=== PATIENT | female | born 1950 | race Caucasian/White ===

== ENCOUNTER 2018-06-05 08:43 | Inpatient (IN) ==
[2018-05-30 10:19] LABS: Basophils # (Auto) 0.1 K/mcL (0.0-0.3); Eosinophils # (Auto) 0.5 K/mcL (0.0-0.7); Eosinophils % (Auto) 6.2 % (0.0-7.0); Granulocytes % (Auto) 56.3 % (38.0-78.0); Lymphocytes # (Auto) 2.4 K/mcL (1.5-4.8); Lymphocytes % (Auto) 29.5 % (15.5-49.0); Mean Cell Volume 93.7 fL (80.0-100.0); Mean Corpuscular HGB Conc 32.6 g/dL (31.0-36.0); Mean Corpuscular Hemoglobin 30.5 pg (26.0-34.0); Monocytes # (Auto) 0.6 K/mcL (0.1-0.9); Platelet Count 317 K/mcL (140-440); RBC 4.32 M/mcL (4.00-5.20); Red Cell Distribution Width 14.7 % (11.5-14.5)
[2018-05-30 10:55] LABS: Appearance,Urine HAZY; Bacteria,Urine 0 /hpf (0); Bilirubin,Urine NEG (NEG); Color,Urine YELLOW; Glucose,Urine (UA) NEGATIVE (NEG); Leukocyte Esterase,Urine 250 /uL (NEG); Protein,Urine NEG (NEG); Specific Gravity,Urine 1.014 (1.000-1.035); Urine Blood NEG mg/dL (<0.03); Urine RBC 1 /hpf (0-1); Urine Squamous Epithelial Cell 6 /hpf (0-4); Urine Transitional Epi Cells 1 /hpf (0-2); Urine WBC 14 /hpf (0-4)
[~2018-06-05 08:43] MED LIST: 0.9 % SODIUM CHLORIDE 9 ML, KETOROLAC 30 MG, ROPIVACAINE HCL/PF 49.5 ML, EPINEPHrine 0.... IJ SCH; ACETAMINOPHEN 500 MG TABLET PO SCH; CELECOXIB 200 MG CAPSULE PO SCH; PREGABALIN 75 MG CAPSULE PO SCH; ceFAZolin 1 GM VIAL IV SCH; oxyCODONE 10 MG TAB.ER.12H PO SCH
[2018-06-05 10:24] LABS: Blood Urea Nitrogen 10 mg/dl (8-23)
[2018-06-05] MEDS ORDERED: MIDAZOLAM 5 MG/5 ML VIAL IV ONE (13:20)
[2018-06-05] MEDS ORDERED: PROPOFOL 200 MG/20 ML VIAL IV ONE (13:20)
[2018-06-05] MEDS ORDERED: ONDANSETRON 4 MG/2 ML VIAL IV ONE (13:20)
[2018-06-05] MEDS ORDERED: TRANEXAMIC ACID 1,000 MG/10 ML VIAL IV ONE ×2 (13:20→14:43)
[2018-06-05] MEDS ORDERED: ROPIVACAINE HCL/PF 20 ML VIAL IJ ONE (13:20)
[2018-06-05] MEDS ORDERED: DEXAMETHASONE 10 MG/ML VIAL IV ONE (13:20)
[2018-06-05] MEDS ORDERED: HYDROmorphone 2 MG/ML VIAL IV ONE (13:20)
[2018-06-05] MEDS ORDERED: fentaNYL 250 MCG/5 ML VIAL IV ONE (13:20)
[2018-06-05] MEDS ORDERED: LIDOCAINE HCL/PF 100 MG/5 ML SYRINGE IV ONE (13:20)
[2018-06-05] MEDS ORDERED: MEPERIDINE 25 MG/ML SYRINGE IV PRN (14:16)
[2018-06-05] MEDS ORDERED: NALOXONE HCL 0.4 MG/ML VIAL IV PRN (14:16)
[2018-06-05] MEDS ORDERED: ePHEDrine 50 MG/ML AMPUL IV PRN (14:16)
[2018-06-05] MEDS ORDERED: ONDANSETRON 4 MG/2 ML VIAL IV PRN ×2 (14:16→14:43)
[2018-06-05] MEDS ORDERED: IPRATROPIUM/ALBUTEROL 3 ML AMPUL.NEB NEB PRN (14:16)
[2018-06-05] MEDS ORDERED: FLUMAZENIL 0.1 MG/ML ML IV PRN (14:16)
[2018-06-05] MEDS ORDERED: ATROPINE SULFATE 0.4 MG/ML VIAL IV PRN (14:16)
[2018-06-05] MEDS ORDERED: METHOCARBAMOL 1,000 MG/10 ML VIAL IV PRN (14:16)
[2018-06-05] MEDS ORDERED: PROMETHAZINE 25 MG/ML VIAL IM PRN (14:16)
[2018-06-05] MEDS ORDERED: diphenhydrAMINE 50 MG/ML VIAL IV PRN (14:16)
[2018-06-05] MEDS ORDERED: PROMETHAZINE 25 MG/ML VIAL IV PRN (14:16)
[2018-06-05] MEDS ORDERED: MEPERIDINE 50 MG/ML INJECTION IM PRN (14:16)
[2018-06-05] MEDS ORDERED: METOPROLOL TARTRATE 5 MG/5 ML VIAL IV PRN (14:16)
[2018-06-05] MEDS ORDERED: LACTATED RINGERS 1,000 ML IV SCH (14:30)
[2018-06-05] MEDS ORDERED: BISACODYL 10 MG SUPP.RECT PR PRN (14:43)
[2018-06-05] MEDS ORDERED: MAGNESIUM HYDROXIDE 30 ML ORAL.SUSP PO PRN (14:43)
[2018-06-05] MEDS ORDERED: BENZOCAINE/MENTHOL 1 LOZENGE PO PRN (14:43)
[2018-06-05] MEDS ORDERED: POLYETHYLENE GLYCOL 3350 17 GM PACKET PO PRN (14:43)
[2018-06-05] MEDS ORDERED: TEMAZEPAM 15 MG CAPSULE PO PRN (14:43)
[2018-06-05] MEDS ORDERED: FLEETS ADULT ENEMA PR PRN (14:43)
[2018-06-05] MEDS ORDERED: HYDROmorphone 2 MG/ML VIAL IV PRN (14:43)
[2018-06-05] MEDS ORDERED: ACETAMINOPHEN 325 MG TABLET PO PRN (14:43)
[2018-06-05] MEDS ORDERED: BUPRENORPHINE HCL 2 MG SL PRN (14:46)
[2018-06-05] MEDS ORDERED: ETODOLAC 400 MG TABLET PO PRN (14:46)
--- NOTE | 2018-06-05 14:48 | Brief Operative Note ---
Date of procedure: 06/05/18 Pre-op diagnosis: right knee djd severe Post-op diagnosis: same Procedure: right knee robotic tka Grafts/Implants: Yes Anesthesia: GETA Complications: none Surgeon: Benja Gomez Social Staff Worker: Thor Lee Estimated blood loss (cc): 20 Tourniquet Time (Minutes): 40 Specimens Removed/Pathology: none sent Condition: stable Disposition: PACU
[2018-06-05] MEDS: KETOROLAC 15 MG/ML VIAL IV SCH ×2 (15:18→23:53)
[2018-06-05] MEDS: fentaNYL 100 MCG/2 ML VIAL IV PRN ×4 (15:23→15:39)
--- NOTE | 2018-06-05 15:40 | Operative Note ---
DATE OF OPERATION: 06/05/2018 PREOPERATIVE DIAGNOSIS: Right knee degenerative arthritis in both the medial and patellofemoral joints. POSTOPERATIVE DIAGNOSIS: Right knee degenerative arthritis in both the medial and patellofemoral joints PROCEDURE: Right total knee arthroplasty. This is a robotic total knee arthroplasty with cemented components and resurfacing the patella with a 9 mm poly insert, cruciate retained design from [employer]. SURGEON: Benja Gomez M.D. POWDER CARRIER: Thor Lee PA-C. ANESTHESIA: General LMA anesthesia. COMPLICATIONS: None. INDICATIONS FOR SURGERY: Advanced right knee degenerative arthritis. She had failed all conservative measures, and for this we proceeded with the surgery. DESCRIPTION OF PROCEDURE: The patient was brought to the operating room and put to sleep with general LMA anesthesia. Once asleep, the patient had the right leg sterilely prepped and draped in the usual sterile fashion. We exsanguinated the leg, inflated the tourniquet to 250 pounds of pressure. We made a midline incision, midvastus approach performed. The timeout had been performed. Tranexamic acid and preop antibiotics had already been given. Inspecting the joint, we noticed the severe arthritis in the patellofemoral joint and the medial compartment. At this point, we proceeded with a total knee arthroplasty with the [employer] robot. We then placed two pins above and below the knee, registered the center of hip rotation, registered intraarticular pins and thirty points on the femur and tibia. Once these were registered, we balanced the knee for laxity and to balance the flexion-extension gaps with the robot. Rotation of the component was also marked for the tibial tray for rotation accuracy. Once all this had been done, we then irrigated, brought in the robot, placed retractors and cut the tibial cut first and then the femoral posterior, anterior, chamfer were all made. We then changed the saw blade and made our distal femoral cut and our chamfer cut. Once this was done, we irrigated thoroughly and tapped into place the tibial baseplate. Remnants of the meniscus had been removed and posterior osteophytes. The tibial base plate was positioned with rotation set. This was punched into place. We then placed the femoral component and drilled the peg holes. We then placed a 9 mm poly insert, and this seemed to fit very well. The patella tracked well, achieving full range of motion. Once done, we then prepared the patella. It measured 22 mm. We cut this to 13 mm and placed a 31 mm patellar button. A small chamfer cut was made laterally. We then cemented into place the above-mentioned sizes. Excess cement was removed. We kept the knee at 45 degrees until all cement was dry. Once done, we then reinspected for any loose debris, re-irrigated the knee and deflated the tourniquet at 40 minutes. Once all this was done, we closed the midvastus approach with #1 Stratafix x2, closed the deeper layer with Stratafix and adhesive closure. The patient tolerated this well. There were no complications. RBH:higinio Job ID: [id number] Doc ID: [id number] Benja Gomez MD
--- NOTE | 2018-06-05 15:42 | XRay Report ---
CLINICAL INFORMATION: ITS.REASON: Post-Op Total Knee COMPARISON: None. FINDINGS: Total knee prostheses is anatomically aligned. No osseous abnormality. Periarticular gas and soft tissue swelling seen as expected IMPRESSION: Negative Interpreted and Authenticated by: Reg Jiménez 06/05/18
[2018-06-05] MEDS: HYDROmorphone 2 MG/ML VIAL IV PRN ×2 (15:47→15:59)
[2018-06-05] MEDS: oxyCODONE/APAP 5/325MG TABLET PO PRN ×2 (16:20→20:54)
[2018-06-05] MEDS: 0.45 % SODIUM CHLORIDE 1,000 ML IV SCH (16:23)
[2018-06-05] MEDS: ASPIRIN 325 MG ENTERIC COATED TABLET PO SCH (20:54)
[2018-06-05] MEDS: DOCUSATE SODIUM 100 MG CAPSULE PO SCH (20:54)
[2018-06-05] MEDS: ceFAZolin 1 GM VIAL IV SCH (20:55)
[2018-06-05] MEDS ORDERED: SENNOSIDES 1 TABLET PO SCH (21:00)
[2018-06-05] MEDS: 0.9 % SODIUM CHLORIDE 10 ML SYRINGE IV SCH (21:00)
[2018-06-06] MEDS: 0.45 % SODIUM CHLORIDE 1,000 ML IV SCH (00:15)
[2018-06-06] MEDS: ceFAZolin 1 GM VIAL IV SCH (05:41)
[2018-06-06] MEDS: KETOROLAC 15 MG/ML VIAL IV SCH (05:42)
[2018-06-06] MEDS: 0.9 % SODIUM CHLORIDE 10 ML SYRINGE IV SCH (05:42)
[2018-06-06] MEDS: oxyCODONE/APAP 5/325MG TABLET PO PRN ×3 (05:42→12:41)
[2018-06-06] MEDS ORDERED: LEVOTHYROXINE 150 MCG TABLET PO SCH (07:30)
--- NOTE | 2018-06-06 07:47 | Orthopedic Progress Note ---
Subjective Patient information: Note initiated : 06/06/18 at 7:46 am Service Date, if different from initiated Date: [] Patient: Abbi Nice 67 y/o F admitted on 06/05/18 for Right Jorge L Total Knee Arthroplasty. Chief Complaint: [Pt is stable this morning on post operative day 1 without any significant concerns or complaints. Patients vital signs have remained stable. Patients dressing is dry and is grossly intact from a neurovascular and motor standpoint. Patients 10 point ROS is otherwise negative. ] Objective Vital signs: Vital Signs Temp Pulse Pulse Resp BP BP Pulse Ox 06/06/18 07:25 98.5 F 58 L 18 108/62 99 06/06/18 04:00 98.3 F 65 14 118/69 98 06/06/18 00:00 98.5 F 74 14 95/58 96 06/05/18 19:11 98.5 F 81 14 106/64 98 06/05/18 18:11 91 H 126/75 98 06/05/18 17:41 92/59 97 06/05/18 17:12 94/63 95 06/05/18 16:57 120/68 100 06/05/18 16:41 113/71 96 06/05/18 16:26 128/78 99 06/05/18 16:11 126/79 98 06/05/18 16:01 98.4 F 89 15 143/62 100 06/05/18 15:45 89 14 140/62 100 06/05/18 15:30 93 H 14 153/65 100 06/05/18 15:15 92 H 16 140/65 100 06/05/18 15:10 94 H 16 140/66 100 06/05/18 15:05 95 H 17 144/63 100 06/05/18 15:01 98.1 F 100 H 16 136/61 98 06/05/18 09:09 97 F 20 113/74 97 Intake and Output 06/05/18 06/06/18 06/06/18 21:59 05:59 13:59 Intake Total 2500 / 2500 1140 / 1140 360 / 360 Output Total 450 / 450 Balance 2049 / 2049 1140 / 1140 360 / 360 Intake: IV 740 / 740 Sodium Chloride 0.45% 1,000 ml 740 / 740 @ 100 mls/hr IV .Q10H [facility] Rx#: [id number] Oral 300 / 300 400 / 400 360 / 360 IV - Manual Only 2200 / 0 Output: Void Amount 400 / 400 Estimated Blood Loss 50 / 50 Other: # Voids 2 1 Weight 179 lb Intake & Output: Intake & Output 06/05/18 06/06/18 06/06/18 21:59 05:59 13:59 Intake Total 2500 / 2500 1140 / 1140 360 / 360 Output Total 450 / 450 Balance 2049 / 0 1140 / 1140 360 / 360 Weight 179 lb Intake: IV 740 / 740 Sodium Chloride 0.45% 1,000 ml 740 / 740 @ 100 mls/hr IV .Q10H [facility] Rx#: [id number] Oral 300 / 300 400 / 400 360 / 360 IV - Manual Only 0 / 0 Output: Void Amount 400 / 400 Estimated Blood Loss 50 / 50 Other: # Voids 2 1 Incision: Yes healing Dressing: Yes dry Weight bearing status: full Neurological exam IM: Yes motor sensory intact Extremities exam IM: Yes Foot pink and warm, Yes neurovascular intact - Labs CBC & BMP: 06/06/18 05:16 06/05/18 09:09 Labs: Orthopedic Labs 05/30/18 08:54 PT 13.1 INR 1.0 APTT 31 06/06/18 05/30/18 05:16 08:54 Hgb 13.2 Hct 29.3 L 40.4 Assessment and Plan (1) Hx of total knee arthroplasty The patient has been educated regarding dressing care, Physical Therapy recommendations, home exercises, restrictions, and follow up appointments. The patient has had all necessary DME prescribed. The patient has remained relatively stable during their hospital course. Leave Dermabond patch intact until followup Status: Acute
--- NOTE | 2018-06-06 07:49 | Discharge Summary ---
Ortho Discharge - TKA - Patient Instructions Diet: Regular Diet Activity: activity as tolerated, weight bearing as tolerated Total Knee Protocol: For Total Knee: Start ROM MOY with stationary bike or rocking chair. Work on gaining full extension of knee. Posterior dislocation precautions provided. Hip abductor strengthening and gait training instructions provided. Apply Cryocuff as instructed. Dressing Care: May shower in 2 days - Problem Maintenance (1) Hx of total knee arthroplasty Status: Acute - Follow Up Plan Follow Up Appointments: Thor Lee PA-C [Physician [facility]] - 06/20/18 8:10 am Disposition: Home, Self-Care Prognosis: Good Rehab Potential: Good I certify that the patient requires SNF services: No Overall status at discharge: patient is progressing back to baseline - Orders For Discharge Prescriptions: Aspirin [Ecotrin] 325 mg PO BID #60 tab.ec Docusate Sodium [Colace] 100 mg PO BID #60 cap oxyCODONE/APAP [Percocet 5-325 mg] 1 - 2 tab PO Q4HP PRN #75 tab PRN Reason: Pain Level 3-6
[2018-06-06] MEDS ORDERED: FLUTICASONE PROPIONATE SPRAY.NAS NS SCH (09:00)
[2018-06-06] MEDS ORDERED: FISH OIL 1,000 MG CAPSULE PO SCH (09:00)
[2018-06-06] MEDS ORDERED: valACYclovir 500 MG TABLET PO SCH (09:00)
[2018-06-06] MEDS ORDERED: MAGNESIUM OXIDE 400 MG TABLET PO SCH (09:00)
[2018-06-06] MEDS: ASPIRIN 325 MG ENTERIC COATED TABLET PO SCH (10:48)
[2018-06-06] MEDS: DOCUSATE SODIUM 100 MG CAPSULE PO SCH (10:48)
== END 2018-06-06 12:56 | disposition home or self-care (01) | DRG 470 ==
LOC: MEDSUR 08:43
PROVIDERS: ADMIT Orthopaedic Surgery; ATTEND Orthopaedic Surgery

== ENCOUNTER 2019-12-09 03:11 | Inpatient (IN) ==
[2019-12-09] MEDS ORDERED: ONDANSETRON 4 MG/2 ML VIAL IV ONE (03:33)
[2019-12-09] MEDS ORDERED: HYDROmorphone 2 MG/ML VIAL IV PRN (03:33)
--- NOTE | 2019-12-09 03:55 | Emergency Department Note ---
Abdominal Pain HPI - General Chief Complaint: Abdominal Pain Stated Complaint: lower right abd.pain Time Seen by Provider: 12/09/19 03:16 Mode of arrival: ambulatory - History of Present Illness HPI Narrative: This 69-year-old female has had about 4 hours with some nausea and some dry heaves and some pain in the right lower mid and abdominal area with some wrapping around to her bilateral flanks. She has not been taking any ibuprofen. She denies fever, chills, sweats but has felt weak. No lightheadedness. REVIEW OF SYSTEMS: Denies chest pain, cough, shortness of breath, dysuria, frequency, anxiety, depression. - Related Data Home Medications Medication Instructions Recorded Confirmed valacyclovir 1 gram tablet 1 g PO DAILY tab 05/20/16 11/22/19 Fluticasone Propionate [Flonase] 1 spray NS DAILY 05/30/18 11/22/19 cholecalciferol (vitamin D3) 1,250 50,000 unit PO .Twice a week tab 07/18/19 11/22/19 mcg (50,000 unit) tablet cyclobenzaprine 10 mg tablet 10 mg PO TID 07/18/19 11/22/19 denosumab 60 mg/mL subcutaneous 60 mg SUB-Q [id number] 07/18/19 11/22/19 syringe estradiol 2 g VAGINAL .Every Other Week g 07/18/19 11/22/19 fexofenadine 180 mg tablet 180 mg PO QDAY 07/18/19 11/22/19 hydroxyzine HCl 25 mg tablet 25 mg PO TID-QID PRN 07/18/19 11/22/19 lidocaine 5 % topical patch 1 patch TOPICAL QDAY 07/18/19 11/22/19 Previous Rx's Medication Instructions Recorded celecoxib 200 mg capsule 200 mg PO QDAY #90 cap 07/30/19 gabapentin 600 mg tablet 600 mg PO TID #90 tab 08/14/19 temazepam 15 mg capsule 15 mg PO QHS PRN #90 cap 08/30/19 buprenorphine HCl 2 mg sublingual 2 mg SUBLINGUAL Q4HP PRN #150 tab 09/18/19 tablet MDD 5 per day levothyroxine 175 mcg tablet 175 mcg PO QDAY #90 tab 09/19/19 paroxetine HCl 20 mg tablet 20 mg PO QDAY #90 tab 10/04/19 Chlorhexidine Gluconate [Peridex] 15 ml MM BID #118 mouthwash 10/27/19 lidocaine HCl 2 % mucosal solution 1 applic MUCOUS MEM QID PRN #100 ml 11/02/19 metoprolol succinate 25 mg 12.5 mg PO QDAY #90 tab 11/22/19 tablet,extended release 24 hr sulfamethoxazole 800 1 tab PO BID #14 tab 11/22/19 mg-trimethoprim 160 mg tablet Allergies Allergy/AdvReac Type Severity Reaction Status Date / Time meloxicam Allergy Severe Unknown Verified 11/22/19 07:30 ciprofloxacin [From Cipro] Allergy Intermediate Unknown Verified 11/22/19 07:30 clarithromycin AdvReac Mild Nausea/Vomi Verified 11/22/19 07:30 [CLARITHROMYCIN] ting gentamicin [GENTAMICIN] AdvReac Mild GTTS MADE Verified 11/22/19 07:30 EAR SWELL UP BADLY hydrocodone [HYDROCODONE] AdvReac Mild Nausea Verified 11/22/19 07:30 morphine [MORPHINE] AdvReac Mild ITCHING Verified 11/22/19 07:30 nifedipine [From Procardia] AdvReac Mild red face Verified 11/22/19 07:30 Abdominal Pain PMH - Past Medical History [facility] Narrative: Medical History (Last Updated 12/09/19 @ 05:06 by Frank Newsome DO) History of peptic ulcer disease (Chronic) Cerebellar infarction (Chronic) History of Coumadin therapy (Chronic) supervisor intermediates (current) use of opiate analgesic (Chronic) Degenerative disc disease (Chronic) Allergic rhinitis (Chronic) Arthritis (Chronic) Hypothyroidism (Chronic) Vitamin D deficiency (Chronic) Insomnia (Chronic) Herpes labialis (Chronic) Vaginal atrophy (Chronic) Bilateral hand pain (Chronic) Herpes simplex infection (Chronic) Vertigo (Chronic) Restless leg syndrome (Chronic) B12 deficiency (Chronic) Bariatric surgery status (Chronic) Anemia (Chronic) Headache (Chronic) Frequent UTI (Chronic) Memory loss (Chronic) Oral herpes simplex infection (Chronic) Herpes genitalis (Chronic) Weight gain (Chronic) Depression with anxiety (Chronic) Cervical radiculopathy (Chronic) Leg weakness, bilateral (Chronic) Degenerative disc disease, lumbar (Chronic) Osteoporosis (Chronic) Tremor of unknown origin (Chronic) Benign neoplasm of cerebral meninges (Chronic) Knee pain, right (Chronic) Herpes simplex (Chronic) Urinary tract infection (Chronic) Other specified pruritic conditions (Chronic) GERD (gastroesophageal reflux disease) (Chronic) Peripheral edema (Chronic) Abnormal computerized tomography of brain (Chronic) Libido, decreased (Chronic) Chronic pain syndrome (Chronic) History of CT scan of abdomen (Chronic 05/02/14) History of CT scan of abdomen (Chronic 04/16/16) Neck pain (Chronic) Back pain (Chronic) Sleep disorder (Chronic) Stenosis, cervical spine (Chronic) Chronic pain (Chronic) Anxiety (Chronic) Fibromyalgia (Chronic) Chronic UTI (Chronic) Dyspareunia (Chronic) Back pain, thoracic (Resolved) Closed head injury (Resolved) Cystitis (Resolved) Encounter for therapeutic drug level monitoring (Resolved) Other screening mammogram (Resolved) Past Surgical History (Last Updated 12/09/19 @ 03:20 by Frank Newsome DO) History of back surgery (Chronic) History of bladder repair surgery (Chronic 05/17/11) History of carpal tunnel surgery of right wrist (Chronic) History of colonoscopy (Chronic) History of elbow surgery (Chronic 05/20/11) History of gastric bypass (Chronic 05/12/10) History of lumbar laminectomy (Chronic ~1998) Hx of total hip arthroplasty (Chronic) Hx of total knee arthroplasty (Chronic) Family History (Last Reviewed 11/22/19 @ 07:53 by AKIKO Faith) Family/Other Hypertension Medical history: Reports: other (DENIES: Anemia). Denies: cancer, chronic anticoagulation, DM, hypertension, myocardial infarction Reports: other (DENIES GB disease). Denies: diverticulitis, kidney stone, pancreatitis, GI bleed Psychiatric history: Denies: anxiety, depression - Social History Smoking status: Never smoker Alcohol use: Reports: None Physical Exam Limitations: no limitations General appearance: alert, grimacing (Occasional/mild), in no apparent distress Head: atraumatic, normocephalic Eye: Present: normal appearance, PERRL, EOMI. Absent: scleral icterus, conjunctival injection ENT: Present: mucous membranes dry, other (Lips are very dry. Normal midline tongue and uvula) Neck: Present: trachea midline. Absent: lymphadenopathy, thyromegaly Chest: Present: symmetric chest wall rise Respiratory: Present: normal lung sounds bilaterally. Absent: respiratory distress, wheezes, stridor, accessory muscle use, prolonged expiratory phase Cardiovascular: Present: regular rate, normal rhythm, bradycardia. Absent: systolic murmur, diastolic murmur Abdominal: Present: soft, tenderness (Has rather severe pain to palpation in the mostly upper abdomen.). Absent: distention, guarding, rebound, rigidity, organomegaly, mass Extremities: Absent: pedal edema, pretibial edema, calf tenderness Back: Absent: CVA tenderness (R), CVA tenderness (L), spinous process tenderness Neurological: Present: alert, oriented X3 Psychiatric: Present: normal affect, normal mood Skin: Present: warm, dry Course Vital Signs Temperature 96.7 F L 12/09/19 03:11 Pulse Rate 57 L 12/09/19 03:11 Respiratory Rate 16 12/09/19 03:11 Blood Pressure 160/79 12/09/19 03:11 Temperature 96.7 F L 12/09/19 03:11 Pulse Rate 57 L 12/09/19 03:11 Respiratory Rate 16 12/09/19 03:11 Blood Pressure 151/72 12/09/19 09:01 Abdominal Pain - MDM Narrative Medical decision making narrative: 3:21 AM - interviewed and examined. Rather significant abdominal pain. We will do multiple labs, POC 8, hydromorphone, ondansetron, IV fluids. Patient's labs include a lactic acid 3.2. White count 10.6. Her vital signs remained stable even with a mild bradycardia at 57 from time to time. IV access was extremely difficult and over multiple nursing staff and multiple attempts it was eventually determined to go ahead with a CT scan of the abdomen without contrast. 9:00 AM - I spoke with radiologist, Dr. Jiménez, who points out a high-grade distal ileal partial obstruction with some third spacing fluid around the area. There is significant stool in the colon so most likely is partial. 9:10 AM - I spoke with Dr. York, general surgeon, who is willing to accept this patient's care inpatient and agrees that she needs to be in. Patient is agreeable and appreciative. Multiple family members present and appreciative. - Lab Data Result diagrams: 12/09/19 04:02 12/09/19 04:02 Lab Results 12/09/19 12/09/19 12/09/19 Range/Units 04:02 04:02 04:02 WBC 10.6 (4.50-11.00) K/mcL RBC 4.49 (3.59-5.38) M/mcL Hgb 13.5 (11.2-15.7) g/dL Hct 43.1 (34.1-44.9) % POC Hct 45.0 (36.0-48.0) % MCV 96.0 (80.0-100.0) fL MCH 30.1 (26.0-34.0) pg MCHC 31.3 (31.0-36.0) g/dL RDW 14.6 H (11.5-14.5) % Plt Count 271 (140-440) K/mcL MPV 10.0 (7.4-10.4) fL Gran % 82.9 H (38.0-78.0) % Lymph % (Auto) 11.4 L (15.5-49.0) % Gilchrist % (Auto) 3.7 (1.0-12.0) % Eos % (Auto) 1.2 (0.0-7.0) % Baso % (Auto) 0.8 (0.0-2.0) % Gran # 8.83 H (1.80-8.00) K/mcL Lymph # (Auto) 1.21 L (1.50-4.80) K/mcL Gilchrist # (Auto) 0.39 (0.10-0.90) K/mcL Eos # (Auto) 0.13 (0.00-0.70) K/mcL Baso # (Auto) 0.08 (0.00-0.30) K/mcL VBG Lactic Acid 3.2 H (0.5-2.0) mmol/L POC Sodium 138 (133-145) mmol/L Sodium 138 (133-145) mmol/L POC Potassium 3.8 (3.3-5.1) mmol/L Potassium 4.1 (3.3-5.1) mmol/L POC Chloride 106 (96-108) mmol/L Chloride 103 (96-108) mmol/L Carbon Dioxide 19 L (22-30) mmol/L POC Total CO2 23 (22-30) mmol/L Anion Gap 16.0 (8-16) POC BUN 18 (8-23) mg/dl BUN 16 (8-23) mg/dl Creatinine 0.8 (0.6-1.1) mg/dl POC Creatinine 0.7 (0.6-1.1) mg/dl GFR Calculation 76 Glucose 184 H (70-105) mg/dL POC Glucose 183 H (70-105) mg/dL Calcium 8.9 (8.6-10.4) mg/dl POC WB Ioniz Calcium 1.03 L (1.16-1.32) mmol/L Total Bilirubin 0.2 (0.0-1.0) mg/dL AST 29 (0-37) U/l ALT 24 (0-40) U/l Alkaline Phosphatase 120 H (39-117) U/L Total Protein 7.1 (5.9-8.4) gm/dL Albumin 4.1 (3.2-5.2) gm/dL Globulin 3.0 (2.2-3.7) gm/dL Albumin/Globulin Ratio 1.4 (1.0-2.3) Lipase 29 (7-60) U/L Disposition Pt seen by [facility]/PA only: No Clinical Impression: Small bowel obstruction, partial, Difficult intravenous access Disposition: Xfer As Inpt ([facility]) Condition: Fair Referrals: Rosaline York ARNP [Primary Care Provider] -
[2019-12-09 04:11] LABS: POC Blood Urea Nitrogen 18 mg/dl (8-23); POC CO2 23 mmol/L (22-30); POC Calcium, Ionized 1.03 mmol/L (1.16-1.32); POC Chloride 106 mmol/L (96-108); POC Creatinine 0.7 mg/dl (0.6-1.1); POC Glucose, Random 183 mg/dL (70-105); POC Potassium 3.8 mmol/L (3.3-5.1); POC Sodium 138 mmol/L (133-145)
[2019-12-09 04:30] LABS: Basophils # (Auto) 0.08 K/mcL (0.00-0.30); Basophils % (Auto) 0.8 % (0.0-2.0); Eosinophils # (Auto) 0.13 K/mcL (0.00-0.70); Eosinophils % (Auto) 1.2 % (0.0-7.0); Granulocytes % (Auto) 82.9 % (38.0-78.0); Hematocrit 43.1 % (34.1-44.9); Hemoglobin 13.5 g/dL (11.2-15.7); Lymphocytes # (Auto) 1.21 K/mcL (1.50-4.80); Lymphocytes % (Auto) 11.4 % (15.5-49.0); Mean Corpuscular HGB Conc 31.3 g/dL (31.0-36.0); Monocytes # (Auto) 0.39 K/mcL (0.10-0.90); Monocytes % (Auto) 3.7 % (1.0-12.0); Platelet Count 271 K/mcL (140-440); RBC 4.49 M/mcL (3.59-5.38); Red Cell Distribution Width 14.6 % (11.5-14.5); WBC 10.6 K/mcL (4.50-11.00)
[2019-12-09 04:48] LABS: ALT/SGPT 24 U/l (0-40); AST/SGOT 29 U/l (0-37); Albumin 4.1 gm/dL (3.2-5.2); Albumin/Globulin Ratio 1.4 (1.0-2.3); Alkaline Phosphatase 120 U/L (39-117); Bilirubin,Total 0.2 mg/dL (0.0-1.0); Blood Urea Nitrogen 16 mg/dl (8-23); Calcium 8.9 mg/dl (8.6-10.4); Carbon Dioxide 19 mmol/L (22-30); Chloride 103 mmol/L (96-108); Glomerular Filtration Rate 76; Glucose 184 mg/dL (70-105)
[2019-12-09] MEDS ORDERED: LACTATED RINGERS 1,000 ML IV ONE (05:04)
--- NOTE | 2019-12-09 06:16 | XRay Report ---
CLINICAL INFORMATION: Severe mid abdominal pain COMPARISON: 11/10/2018 FINDINGS: There are multiple loops of moderately dilated small bowel throughout the abdomen. The colon is normal caliber with moderate stool in the right and rectosigmoid segments. No free air, pathologic calcification, soft tissue mass or organomegaly IMPRESSION: Nonspecific stool gas pattern: Partial distal small bowel obstruction versus atypical ileus. Follow-up abdominal pelvic CT to be performed Interpreted and Authenticated by: Reg Jiménez 12/09/19
[2019-12-09] MEDS ORDERED: HYDROmorphone 2 MG/ML VIAL IM ONE ×2 (07:10→11:11)
[2019-12-09] MEDS ORDERED: ONDANSETRON 4 MG/2 ML VIAL IV PRN (10:46)
[2019-12-09] MEDS ORDERED: PROMETHAZINE 25 MG/ML VIAL IV PRN (10:46)
[2019-12-09] MEDS: HYDROmorphone 2 MG/ML VIAL IV PRN (12:29)
[2019-12-09] MEDS: METHYLNALTREXONE BROMIDE 12 MG/0.6 ML SYRINGE SQ SCH (12:36)
[2019-12-09] MEDS: METOCLOPRAMIDE 10 MG/2 ML VIAL IV SCH ×3 (12:41→23:30)
--- NOTE | 2019-12-09 12:54 | General Surg History&Physical ---
History of Present Illness Patient information: Note initiated : 12/09/19 at 12:51 pm Service Date, if different from initiated Date: [] Patient: Abbi Nice a 69 y/o F admitted on 12/09/19 for lower right abd.pain. Chief Complaint: [] HPI: Ms. Nice is a 69 year old F admitted with partial small bowel obstruction and severe adynamic ileus probably related to be present next therapy. The patient awakened about 12 midnight with severe abdominal pain. The pain was constant in the right lower quadrant and persisted for at least 3 hours. She had nausea with multiple episodes of dry heaves. She was finally seen in the emergency room where was noted that she had dilated loops of small bowel with some fecalIZATION of her distal small bowel. She had some chills and sweats which resolved. She states that she's had similar episodes in the past which were short-lived, but the pain was not as severe. Patient is on chronic Buprenex therapy for chronic pain syndrome. Her x-ray actually suggests severe adynamic ileus with severe constipation leading to colonic and small bowel obstruction. Review of Systems All systems PM: reviewed and no additional remarkable complaints except as stated (negative except as above and as noted below) - Constitutional chills, headache(s), weight loss - Cardiovascular no chest pain, no dyspnea, no dyspnea on exertion, no palpatations, no syncope - Respiratory no cough, no dyspnea on exertion, no wheezing - Gastrointestinal abdominal pain, change in bowel habits, constipation, cramping, nausea, vomiting - Musculoskeletal arthralgias, back pain (will sure), myalgias - Neurological disequilibrium, restless legs, tremor(s) (benign essential tremor) - Psychiatric anxiety, depression - Hematologic/Lymphatic no easy bleeding, no easy bruising, no lymphadenopathy - Allergic/Immunologic no tongue swelling, no throat swelling, no uticaria, no wheezing, no lip swelling Past History Past medical history: 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 Degenerative disc disease. Essential tremor. Degenerative arthritis. Chronic pain syndrome Past surgical history: Bladder sling for prolapse. Right carpal tunnel release. Right total hip arthroplasty. Left total hip arthroplasty. Right total knee arthroplasty. Gastric bypass. Lumbar laminectomy. Right reverse total shoulder replacement Past family history: Mother age 46 due to complications of bariatric surgery. Father age 94 due to natural causes Past social history: Never smoker. Never. Alcohol use. Never drug use Medications and Allergies Home Medications Medication Instructions Recorded Confirmed Type valacyclovir 1 gram tablet 1 g PO DAILY tab 05/20/16 11/22/19 History Fluticasone Propionate [Flonase] 1 spray NS DAILY 05/30/18 11/22/19 History cholecalciferol (vitamin D3) 1,250 50,000 unit PO .Twice a week tab 07/18/19 11/22/19 History mcg (50,000 unit) tablet cyclobenzaprine 10 mg tablet 10 mg PO TID 07/18/19 11/22/19 History denosumab 60 mg/mL subcutaneous 60 mg SUB-Q [id number] 07/18/19 11/22/19 History syringe estradiol 2 g VAGINAL .Every Other Week g 07/18/19 11/22/19 History fexofenadine 180 mg tablet 180 mg PO QDAY 07/18/19 11/22/19 History hydroxyzine HCl 25 mg tablet 25 mg PO TID-QID PRN 07/18/19 11/22/19 History lidocaine 5 % topical patch 1 patch TOPICAL QDAY 07/18/19 11/22/19 History celecoxib 200 mg capsule 200 mg PO QDAY #90 cap 07/30/19 11/22/19 Rx gabapentin 600 mg tablet 600 mg PO TID #90 tab 08/14/19 11/22/19 Rx temazepam 15 mg capsule 15 mg PO QHS PRN #90 cap 08/30/19 11/22/19 Rx buprenorphine HCl 2 mg sublingual 2 mg SUBLINGUAL Q4HP PRN #150 tab 09/18/19 11/22/19 Rx tablet MDD 5 per day levothyroxine 175 mcg tablet 175 mcg PO QDAY #90 tab 09/19/19 11/22/19 Rx paroxetine HCl 20 mg tablet 20 mg PO QDAY #90 tab 10/04/19 11/22/19 Rx Chlorhexidine Gluconate [Peridex] 15 ml MM BID #118 mouthwash 10/27/19 11/22/19 Rx lidocaine HCl 2 % mucosal solution 1 applic MUCOUS MEM QID PRN #100 ml 11/02/19 11/22/19 Rx metoprolol succinate 25 mg 12.5 mg PO QDAY #90 tab 11/22/19 11/22/19 Rx tablet,extended release 24 hr sulfamethoxazole 800 1 tab PO BID #14 tab 11/22/19 11/22/19 Rx mg-trimethoprim 160 mg tablet Allergies Allergy/AdvReac Type Severity Reaction Status Date / Time meloxicam Allergy Severe Unknown Verified 11/22/19 07:30 ciprofloxacin [From Cipro] Allergy Intermediate Unknown Verified 11/22/19 07:30 clarithromycin AdvReac Mild Nausea/Vomi Verified 11/22/19 07:30 [CLARITHROMYCIN] ting gentamicin [GENTAMICIN] AdvReac Mild GTTS MADE Verified 11/22/19 07:30 EAR SWELL UP BADLY hydrocodone [HYDROCODONE] AdvReac Mild Nausea Verified 11/22/19 07:30 morphine [MORPHINE] AdvReac Mild ITCHING Verified 11/22/19 07:30 nifedipine [From Procardia] AdvReac Mild red face Verified 11/22/19 07:30 Exam Temp Pulse Resp BP Pulse Ox 96.7 F L 57 L 16 145/78 95 12/09/19 11:29 12/09/19 11:29 12/09/19 11:29 12/09/19 11:29 12/09/19 10:46 - General physical appearance well developed, well nourished, moderate distress, moderate pain - Eyes PERRL, normal ocular movement - ENT normal pinna, normal nares, normal mucosa, no hearing loss, no congestion - Head Head exam IM: Present: atraumatic, normocephalic - Neck no masses, no bruits, trachea midline, no lymphadenopathy, no venous distension - Cardiovascular Cardiovascular exam IM: Present: normal rate and rhythm, RRR, +S1, +S2. Absent: JVD, tachycardia - Respiratory normal expansion, normal respiratory effort, clear to auscultation - Abdomen Abdomen: Present: soft, tender (diffuse tenderness throughout. Abdomen with mild distention; active bowel sounds; no mass), bowel sounds Hernia: Present: none - Genitourinary Present: normal external genitalia - Integumentary Present: no rash, no growths, no abnormal pigmentation - Neurologic Present: normal coordination, normal sensation - Musculoskeletal Present: normal gait, normal posture - Psychiatric Present: oriented to time, oriented to person, oriented to place, speech is normal, memory intact Assessment and Plan (1) Therapeutic opioid induced constipation Relistor 12 mg subcutaneous daily 3. Metoclopramide 10 mg IV every 6 Soap suds enema Status: Acute (2) Small bowel obstruction, partial Status: Acute (3) Chronic pain syndrome Status: Chronic (4) Depression with anxiety Status: Chronic (5) residential (current) use of opiate analgesic Status: Chronic
[2019-12-09] MEDS: 0.9 % SODIUM CHLORIDE 1,000 ML IV SCH ×3 (13:40→21:35)
[2019-12-09] MEDS: 0.9 % SODIUM CHLORIDE 10 ML SYRINGE IV SCH ×2 (13:40→22:51)
--- NOTE | 2019-12-09 13:40 | XRay Report ---
CLINICAL INFORMATION: preop evaluation COMPARISON: 12/27/2018 FINDINGS: Heart size, mediastinum and pulmonary vessels are normal. Lungs are clear. No effusions. IMPRESSION: Negative Interpreted and Authenticated by: Reg Jiménez 12/09/19
--- NOTE | 2019-12-09 13:57 | Cat Scan Report ---
CLINICAL INFORMATION: Abdominal pain and distention. Possible partial distal small bowel obstruction on plain film. History of gastric bypass COMPARISON: Lumbar CT 02/23/2018 TECHNIQUE: 0.625 mm helical slices were obtained from the mid heart through the subtrochanteric regions. Following reconstruction, 2.5 mm sagittal, coronal and axial reformatted images were processed and reviewed at bone and soft tissue windows.The exam was performed using radiation dose optimization techniques including, but not limited to, automated exposure control, adjustment of the mA and/or kV according to patient size and use of iterative reconstruction technique. FINDINGS: Lung bases show no abnormality. No effusion. The visualized heart is grossly normal. Abdominal images show the noncontrasted liver, gallbladder and bile ducts, both kidneys, adrenal glands, spleen and aorta to be normal in size configuration and attenuation without focal lesion. Moderate pancreatic atrophy atrophy. There is fat replacement of most of the parenchyma. There is no adenopathy or free air. Pelvic images show beam hardening artifact from bilateral hip prostheses obscuring the soft tissue pelvis. Hysterectomy and nephrectomy changes noted. The urinary bladder is grossly normal. There is a moderate stricture of the distal ileum that axial image 124. The small bowel stomach proximal to this region are moderately dilated. The distal small bowel is decompressed. There is still moderate stool suggesting there is only a partial obstruction..Gastric bypass changes are grossly normal. Bone windows show degenerative change lumbar spine IMPRESSION: 1. High-grade partial small bowel obstruction of the distal ileum due to adhesions or stricture. Small amount of ascites and mesenteric edema in the right lower quadrant suggest third spacing. No free air to suggest perforation. 2. Moderate pancreatic atrophy Interpreted and Authenticated by: Reg Jiménez 12/09/19
[2019-12-09] MEDS: SENNOSIDES 1 TABLET PO SCH (21:07)
[2019-12-09] MEDS: DOCUSATE SODIUM 100 MG CAPSULE PO SCH (21:07)
[2019-12-10] MEDS: 0.9 % SODIUM CHLORIDE 1,000 ML IV SCH ×5 (05:35→22:45)
[2019-12-10] MEDS: METOCLOPRAMIDE 10 MG/2 ML VIAL IV SCH ×4 (05:35→23:12)
[2019-12-10] MEDS: 0.9 % SODIUM CHLORIDE 10 ML SYRINGE IV SCH ×3 (06:05→21:53)
[2019-12-10 06:43] LABS: Basophils # (Auto) 0.11 K/mcL (0.00-0.30); Basophils % (Auto) 1.6 % (0.0-2.0); Eosinophils # (Auto) 0.75 K/mcL (0.00-0.70); Hematocrit 33.2 % (34.1-44.9); Hemoglobin 10.6 g/dL (11.2-15.7); Lymphocytes % (Auto) 26.5 % (15.5-49.0); Mean Cell Volume 94.3 fL (80.0-100.0); Mean Corpuscular HGB Conc 31.9 g/dL (31.0-36.0); Mean Platelet Volume 10.2 fL (7.4-10.4); Monocytes # (Auto) 0.47 K/mcL (0.10-0.90); Monocytes % (Auto) 6.9 % (1.0-12.0); Platelet Count 242 K/mcL (140-440); RBC 3.52 M/mcL (3.59-5.38); WBC 6.8 K/mcL (4.50-11.00)
[2019-12-10 06:57] LABS: ALT/SGPT 14 U/l (0-40); AST/SGOT 19 U/l (0-37); Albumin 3.1 gm/dL (3.2-5.2); Albumin/Globulin Ratio 1.5 (1.0-2.3); Alkaline Phosphatase 88 U/L (39-117); Bilirubin,Direct < 0.2 mg/dL (0.0-0.3); Bilirubin,Total 0.4 mg/dL (0.0-1.0); Blood Urea Nitrogen 10 mg/dl (8-23); Calcium 7.6 mg/dl (8.6-10.4); Carbon Dioxide 26 mmol/L (22-30); Chloride 106 mmol/L (96-108); Globulin 2.1 gm/dL (2.2-3.7); Glomerular Filtration Rate 90; Glucose 92 mg/dL (70-105); Lactate Dehydrogenase 203 U/L (94-250); Phosphorous 3.2 mg/dL (2.7-4.5); Triglycerides 81 mg/dl (<150); Uric Acid 3.1 mg/dL (2.5-8.0)
--- NOTE | 2019-12-10 08:14 | XRay Report ---
HISTORY: Right lower quadrant pain, follow-up small bowel obstruction FINDINGS: There is a large amount stool throughout the colon. The colon is not abnormally distended. There is a solitary loop of dilated small bowel in the left mid abdomen which measures up to 3.4 cm in diameter. It contains a small air-fluid level. No free intra-abdominal air is present. There is no apparent mass in the abdomen. There is a row surgical sutures in the epigastrium. Patient has a scoliotic curvature and degenerative disc disease in the lumbar spine. Bilateral hip prosthesis are noted. IMPRESSION: Near complete resolution of the previously seen partial small bowel obstruction Fecal impaction Interpreted and Authenticated by: Jalen Mc 12/10/19
[2019-12-10] MEDS: DOCUSATE SODIUM 100 MG CAPSULE PO SCH ×2 (09:13→20:49)
[2019-12-10] MEDS: METHYLNALTREXONE BROMIDE 12 MG/0.6 ML SYRINGE SQ SCH (09:15)
[2019-12-10] MEDS: POLYETHYLENE GLYCOL 3350 17 GM PACKET PO SCH ×4 (16:29→23:04)
--- NOTE | 2019-12-10 17:16 | General Surgery Progress Note ---
Subjective Patient reports: feels better, still having pain, pain is less, tolerating liquids well, flatus, no bowel movement, afebrile Narrative: Note initiated : 12/10/19 at 5:14 pm Service Date, if different from initiated Date: [] Patient: Abbi Nice 69 y/o F admitted on 12/09/19 for lower right abd.pain. Chief Complaint: [patient is feeling better and is passing flatus but has not had bowel movements so far. Abdominal x-rays show large volume of stool throughout her colon. Small bowel distention is significantly improved. White count 6.8, hemoglobin 10.6, hematocrit 33.2, lactate 0.7, BUN 10, creatinine 0 0.7] Objective Temp Pulse Resp BP Pulse Ox 98.8 F 67 18 142/74 94 12/10/19 12:00 12/10/19 12:00 12/10/19 12:00 12/10/19 12:00 12/10/19 12:00 - Additional Data Intake & Output - Last 24 hours: Intake & Output 12/08/19 12/09/19 12/10/19 12/11/19 05:59 05:59 05:59 05:59 Intake Total 2990 1240 Output Total 1250 1300 Balance 1740 -60 Weight 170 lb 184 lb 11.2 oz 184 lb 11.2 oz - General physical appearance well developed, well nourished, no distress, moderate pain - Eyes PERRL, normal ocular movement - ENT normal pinna, normal nares, normal mucosa, no hearing loss, no congestion - Neck no masses, no bruits, trachea midline, no lymphadenopathy, no venous distension - Respiratory normal expansion, normal respiratory effort, clear to auscultation - Cardiovascular Cardiovascular exam: Present: normal rate and rhythm, RRR, +S1, +S2. Absent: JVD, tachycardia - Abdomen non tender, bowel sounds (present), surgical scars (none), masses (none) - Integumentary no rash, no growths, no abnormal pigmentation - Neurologic normal coordination, normal sensation - Musculoskeletal normal gait, normal posture - Psychiatric oriented to time, oriented to person, oriented to place, speech is normal, memory intact - Labs 12/10/19 05:53 12/10/19 05:53 Diabetes panel 12/10/19 Range/Units 05:53 Sodium 141 (133-145) mmol/L Potassium 4.3 (3.3-5.1) mmol/L Chloride 106 (96-108) mmol/L Carbon Dioxide 26 (22-30) mmol/L BUN 10 (8-23) mg/dl Creatinine 0.7 (0.6-1.1) mg/dl Glucose 92 (70-105) mg/dL Calcium 7.6 L (8.6-10.4) mg/dl AST 19 (0-37) U/l ALT 14 (0-40) U/l Alkaline Phosphatase 88 (39-117) U/L Total Protein 5.2 L (5.9-8.4) gm/dL Albumin 3.1 L (3.2-5.2) gm/dL Triglycerides 81 (<150) mg/dl Calcium panel 12/10/19 Range/Units 05:53 Calcium 7.6 L (8.6-10.4) mg/dl Phosphorus 3.2 (2.7-4.5) mg/dL Albumin 3.1 L (3.2-5.2) gm/dL Pituitary panel 12/10/19 Range/Units 05:53 Sodium 141 (133-145) mmol/L Potassium 4.3 (3.3-5.1) mmol/L Chloride 106 (96-108) mmol/L Carbon Dioxide 26 (22-30) mmol/L BUN 10 (8-23) mg/dl Creatinine 0.7 (0.6-1.1) mg/dl Glucose 92 (70-105) mg/dL Calcium 7.6 L (8.6-10.4) mg/dl Adrenal panel 12/10/19 Range/Units 05:53 Sodium 141 (133-145) mmol/L Potassium 4.3 (3.3-5.1) mmol/L Chloride 106 (96-108) mmol/L Carbon Dioxide 26 (22-30) mmol/L BUN 10 (8-23) mg/dl Creatinine 0.7 (0.6-1.1) mg/dl Glucose 92 (70-105) mg/dL Calcium 7.6 L (8.6-10.4) mg/dl Total Bilirubin 0.4 (0.0-1.0) mg/dL AST 19 (0-37) U/l ALT 14 (0-40) U/l Alkaline Phosphatase 88 (39-117) U/L Total Protein 5.2 L (5.9-8.4) gm/dL Albumin 3.1 L (3.2-5.2) gm/dL Assessment and Plan (1) Therapeutic opioid induced constipation Status: Acute Assessment and plan: Add MiraLAX 6 doses. Follow-up abdominal x-ray in the morning Current Visit: Yes (2) Small bowel obstruction, partial Status: Acute Current Visit: Yes (3) Chronic pain syndrome Status: Chronic Current Visit: No (4) Depression with anxiety Status: Chronic Current Visit: No (5) group home (current) use of opiate analgesic Status: Chronic Current Visit: No - Time Spent With Patient Total time spent is greater than 50% in coordination of care (as documented) at patient's floor/unit and/or counseling patient:
[2019-12-10] MEDS: SENNOSIDES 1 TABLET PO SCH (20:49)
[2019-12-11] MEDS: POLYETHYLENE GLYCOL 3350 17 GM PACKET PO SCH ×2 (00:54→03:02)
[2019-12-11] MEDS: 0.9 % SODIUM CHLORIDE 1,000 ML IV SCH ×3 (03:02→11:13)
[2019-12-11] MEDS: 0.9 % SODIUM CHLORIDE 10 ML SYRINGE IV SCH ×2 (04:45→14:05)
[2019-12-11] MEDS: METOCLOPRAMIDE 10 MG/2 ML VIAL IV SCH ×2 (05:06→11:17)
[2019-12-11] MEDS: HYDROmorphone 2 MG/ML VIAL IV PRN (06:12)
[2019-12-11 07:44] LABS: Basophils % (Auto) 1.7 % (0.0-2.0); Bilirubin,Direct < 0.2 mg/dL (0.0-0.3); Chloride 107 mmol/L (96-108); Eosinophils # (Auto) 0.76 K/mcL (0.00-0.70); Eosinophils % (Auto) 12.5 % (0.0-7.0); Granulocytes % (Auto) 54.4 % (38.0-78.0); Hemoglobin 11.5 g/dL (11.2-15.7); Lymphocytes # (Auto) 1.41 K/mcL (1.50-4.80); Lymphocytes % (Auto) 23.3 % (15.5-49.0); Mean Cell Volume 92.3 fL (80.0-100.0); Mean Corpuscular HGB Conc 32.9 g/dL (31.0-36.0); Mean Platelet Volume 10.7 fL (7.4-10.4); Monocytes # (Auto) 0.49 K/mcL (0.10-0.90); Monocytes % (Auto) 8.1 % (1.0-12.0); Platelet Count 248 K/mcL (140-440); RBC 3.79 M/mcL (3.59-5.38); Red Cell Distribution Width 14.7 % (11.5-14.5); WBC 6.1 K/mcL (4.50-11.00)
[2019-12-11 07:47] LABS: ALT/SGPT 14 U/l (0-40); AST/SGOT 28 U/l (0-37); Albumin 3.2 gm/dL (3.2-5.2); Albumin/Globulin Ratio 1.3 (1.0-2.3); Alkaline Phosphatase 90 U/L (39-117); Bilirubin,Total 0.3 mg/dL (0.0-1.0); Blood Urea Nitrogen 4 mg/dl (8-23); Calcium 8.3 mg/dl (8.6-10.4); Carbon Dioxide 25 mmol/L (22-30); Globulin 2.5 gm/dL (2.2-3.7); Glomerular Filtration Rate 90; Glucose 96 mg/dL (70-105); Lactate Dehydrogenase 313 U/L (94-250); Phosphorous 2.8 mg/dL (2.7-4.5); Triglycerides 127 mg/dl (<150); Uric Acid 3.2 mg/dL (2.5-8.0)
[2019-12-11] MEDS: DOCUSATE SODIUM 100 MG CAPSULE PO SCH (08:59)
[2019-12-11] MEDS: METHYLNALTREXONE BROMIDE 12 MG/0.6 ML SYRINGE SQ SCH (08:59)
--- NOTE | 2019-12-11 14:16 | XRay Report ---
HISTORY: Follow-up small bowel obstruction FINDINGS: There are multiple air-fluid levels in nondilated loops of both large and small intestine. There is more air in both large and small intestine today than there was on 12/11/19. No free intra-abdominal air is present. There is no apparent soft tissue mass. The stomach is decompressed. IMPRESSION: Mild ileus Interpreted and Authenticated by: Jalen Mc 12/11/19
--- NOTE | 2019-12-11 16:43 | Discharge Summary ---
Providers - Providers Patient information: Note initiated : 12/11/19 at 4:40 pm Service Date, if different from initiated Date: [] Patient: Abbi Nice 69 y/o F admitted on 12/09/19 for lower right abd.pain. Chief Complaint: [] Date of admission: 12/09/19 Discharge date: 12/11/19 Attending physician: Jazmine York Hospitalization Hospital Course: 69-year-old female admitted on 08 December with crampy abdominal pain nausea and vomiting. Clinical picture suggested severe adynamic ileus with small bowel and colonic dilation and a high volume fecal load. The patient has been on chronic Buprenex therapy and was felt to have narcotic induced severe constipation and ileus. She was treated initially with Relistor and then was started on MiraLAX. She had good response to both him and major bowel movements over the last 2 days. Her colon is now totally clean and she is asymptomatic. Patient is advised to take MiraLAX 2-3 times daily. She is stable for discharge home Discharge diagnosis: chronic narcotic induced constipation Secondary discharge diagnosis: Chronic pain syndrome Degenerative disc disease Degenerative arthritis. Essential tremor Reason for admission: abdominal pain, nausea and vomiting Procedures: None Pertinent studies/significant findings: CT of abdomen and pelvis with contrast Complications: None Exam Temp Pulse Resp BP Pulse Ox 97.3 F 70 18 153/74 97 12/11/19 12:00 12/11/19 12:00 12/11/19 12:00 12/11/19 12:00 12/11/19 12:00 - General physical appearance well developed, well nourished, no distress - Eyes PERRL, normal ocular movement - ENT normal pinna, normal nares, normal mucosa, no hearing loss, no congestion - Head Head exam IM: Present: atraumatic, normocephalic - Neck no masses, no bruits, trachea midline, no lymphadenopathy, no venous distension - Cardiovascular Cardiovascular exam IM: Present: normal rate and rhythm - Respiratory normal expansion, normal respiratory effort, clear to percussion, clear to auscultation - Abdomen Abdomen: Present: soft, tender (mild tenderness in the midabdomen, but abdomen is otherwise totally benign), bowel sounds Hernia: Present: none - Genitourinary Present: normal external genitalia - Integumentary Present: no rash, no growths, no abnormal pigmentation - Neurologic Present: normal coordination, normal sensation - Musculoskeletal Present: normal gait, normal posture - Psychiatric Present: oriented to time, oriented to person, oriented to place, speech is normal, memory intact Discharge Plan - Patient/Caregiver Discharge Instructions Activity: increase activity as tolerated Diet: Regular Diet Additional Instructions: MiraLAX 8 ounces of liquid with 17 g powder 2-3 times daily - Follow up Plan Follow up with: Rosaline York ARNP [Primary Care Provider] - Disposition: Home, Self-Care Prognosis: Good Rehab Potential: Good I certify that the patient requires SNF services.: No Overall status at discharge: patient is back to baseline Pending Studies Resuscitation Status Full Code Diet Clear Liquid Diet Start TueDec 10 1623 Docusate Sodium (Colace) 100 mg PO BID COUNT INCLUDES THE [facility] Last Admin: 12/11/19 08:59 Dose: 100 mg Documented by: Admin: 12/10/19 20:49 Dose: 100 mg Documented by: Admin: 12/10/19 09:13 Dose: 100 mg Documented by: Admin: 12/09/19 21:07 Dose: 100 mg Documented by: JAIME Hydromorphone HCl (Dilaudid) 0.5 mg IV Q2HP PRN; Protocol PRN Reason: Per Pain Protocol Last Admin: 12/11/19 06:12 Dose: 0.5 mg Documented by: Admin: 12/09/19 12:29 Dose: 0.5 mg Documented by: GAGE Sodium Chloride (Sodium Chloride 0.9%) 1,000 mls @ 125 mls/hr IV .Q8H COUNT INCLUDES THE [facility] Last Admin: 12/11/19 11:13 Dose: Not Given Documented by: Admin: 12/11/19 06:37 Dose: 125 mls/hr Documented by: Infusion: 12/11/19 06:37 Dose: 125 mls/hr Documented by: Admin: 12/11/19 03:02 Dose: Not Given Documented by: Admin: 12/10/19 22:45 Dose: 125 mls/hr Documented by: Infusion: 12/10/19 22:45 Dose: 125 mls/hr Documented by: Admin: 12/10/19 19:44 Dose: Not Given Documented by: Admin: 12/10/19 14:55 Dose: 125 mls/hr Documented by: Infusion: 12/10/19 13:35 Dose: 125 mls/hr Documented by: Admin: 12/10/19 10:17 Dose: Not Given Documented by: Admin: 12/10/19 05:35 Dose: 125 mls/hr Documented by: Infusion: 12/10/19 05:35 Dose: 125 mls/hr Documented by: Admin: 12/09/19 21:35 Dose: 125 mls/hr Documented by: Infusion: 12/09/19 21:35 Dose: 125 mls/hr Documented by: Admin: 12/09/19 21:07 Dose: Not Given Documented by: Admin: 12/09/19 13:40 Dose: 125 mls/hr Documented by: DEVIN Metoclopramide HCl (Reglan) 10 mg IV Q6 COUNT INCLUDES THE [facility] Last Admin: 12/11/19 11:17 Dose: Not Given Documented by: Admin: 12/11/19 05:06 Dose: 10 mg Documented by: Admin: 12/10/19 23:12 Dose: 10 mg Documented by: Admin: 12/10/19 17:04 Dose: 10 mg Documented by: Admin: 12/10/19 11:52 Dose: 10 mg Documented by: Admin: 12/10/19 05:35 Dose: 10 mg Documented by: Admin: 12/09/19 23:30 Dose: 10 mg Documented by: Admin: 12/09/19 17:29 Dose: 10 mg Documented by: Admin: 12/09/19 12:41 Dose: 10 mg Documented by: DEVIN Senna (Senokot) 2 tab PO HS COUNT INCLUDES THE [facility] Last Admin: 12/10/19 20:49 Dose: 2 tab Documented by: Admin: 12/09/19 21:07 Dose: 2 tab Documented by: JAIME Sodium Chloride (Saline Flush) 10 ml IV Q8 COUNT INCLUDES THE [facility] Last Admin: 12/11/19 14:05 Dose: Not Given Documented by: Admin: 12/11/19 04:45 Dose: Not Given Documented by: Admin: 12/10/19 21:53 Dose: Not Given Documented by: Admin: 12/10/19 13:04 Dose: Not Given Documented by: Admin: 12/10/19 06:05 Dose: Not Given Documented by: Admin: 12/09/19 22:51 Dose: Not Given Documented by: Admin: 12/09/19 13:40 Dose: 10 ml Documented by: DEVIN Shift Summary 12/11/19 15:12 Shift Summary by Gracy Moreno Pt A&Ox4 and able to make needs known. 20g IV to the R. forearm wrapped in coban for protection infusing LS@125ml/hr. Pt has had several copious bowel movements since after her first dose of miralax last night and was even incontinent of bowel at one point. Pt still on a clear liquid diet. Up adlib in the room with SBA to BSC. Reported no pain or discomfort today. Pt would like to discharge as soon as possible due to her having a procedure tomorrow. She is resting at this time with family at the bedside. Will update at bedside. Initialized on 12/11/19 15:12 - END OF NOTE
== END 2019-12-11 17:31 | disposition home or self-care (01) | DRG 392 ==
LOC: ED 03:11 → MEDSUR 10:25
PROVIDERS: ADMIT Family Medicine Adult Medicine; ATTEND Family Medicine Adult Medicine